=== PATIENT | female | born 1995 | race Hispanic/Latino ===

== ENCOUNTER 2019-05-22 19:11 | Emergency (ER) | payer BC, OTHER ==
--- NOTE | 2019-05-22 21:00 | EDPHYS ---
Physician Documentation [facility] Name: Carol Story Age: 23 yrs Sex: Female : 1995 Arrival Date: 05/22/2019 Time: 19:15 Bed 20 Private MD: ED Physician Fabrizio Arvizu HPI: 05/22 06:50 This 23 yrs old Female presents to ER via Ambulatory with complaints of tw4 Nausea, Rash. 06:50 The patient presents to the emergency department with nausea, that is mild. Onset: The tw4 symptoms/episode began/occurred today. Possible causes: unknown. The symptoms are aggravated by nothing. The symptoms are alleviated by nothing. Severity of symptoms: At their worst the symptoms were moderate in the emergency department the symptoms are unchanged. The patient has not experienced similar symptoms in the past. 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 - Social history:: Smoking status: Patient denies any tobacco usage or history of. ROS: 05/22 06:50 Constitutional: Negative for fever, chills, and weight loss, Eyes: Negative for injury, tw4 pain, redness, and discharge. Cardiovascular: Negative for chest pain, palpitations, and edema, Respiratory: Negative for shortness of breath, cough, wheezing, and pleuritic chest pain, MS/Extremity: Negative for injury and deformity, Neuro: Negative for headache, weakness, numbness, tingling, and seizure. Abdomen/GI: Positive for nausea, Negative for abdominal pain, nausea and vomiting, nausea, vomiting, and diarrhea, constipation, abdominal cramps, abdominal distension, anorexia, dysphagia, hematemesis. Skin: Positive for rash. Exam: 06:50 Constitutional: This is a well developed, well nourished patient who is awake, alert, tw4 and in no acute distress. Head/Face: Normocephalic, atraumatic. Chest/axilla: Normal chest wall appearance and motion. Nontender with no deformity. No lesions are appreciated. Cardiovascular: Regular rate and rhythm with a normal S1 and S2. No gallops, murmurs, or rubs. Normal PMI, no JVD. No pulse deficits. Respiratory: Lungs have equal breath sounds bilaterally, clear to auscultation and percussion. No rales, rhonchi or wheezes noted. No increased work of breathing, no retractions or nasal flaring. Abdomen/GI: Soft, non-tender, with normal bowel sounds. No distension or tympany. No guarding or rebound. No evidence of tenderness throughout. MS/ Extremity: Pulses equal, no cyanosis. Neurovascular intact. Full, normal range of motion. Neuro: Awake and alert, GCS 15, oriented to person, place, time, and situation. Cranial nerves II-XII grossly intact. Motor strength 5/5 in all extremities. Sensory grossly intact. Cerebellar exam normal. Normal gait. 06:50 Skin: urticaria. Vital Signs: 05/21 19:45 BP 135 / 85; Pulse 78; Resp 16 S; Temp 98.7(O); Pulse Ox 100% on R/A; Weight 51.71 kg bb (R); Height 4 ft. 11 in. (149.86 cm) (R); Pain 0/10; 21:21 BP 103 / 85; Pulse 76; Resp 16; Temp 98.5(O); Pulse Ox 100% ; Pain 0/10; ao 19:45 Body Mass Index 23.02 (51.71 kg, 149.86 cm) bb MDM: 20:27 Patient medically screened. tw4 05/22 06:50 Differential diagnosis: Nonspecific abd pain, gastritis. Data reviewed: vital signs, tw4 nurses notes. Counseling: I had a detailed discussion with the patient and/or guardian regarding: the historical points, exam findings, and any diagnostic results supporting the discharge/admit diagnosis. Administered Medications: 05/21 21:10 Drug: predniSONE 60 mg Route: PO; ao 21:19 Follow up: Response: No adverse reaction ao 21:10 Drug: Zofran (Ondansetron) 4 mg Route: PO; ao 21:19 Follow up: Response: No adverse reaction ao Disposition: 05/22/19 20:59 Discharged to Home. Impression: Nausea, Dermatitis, unspecified. - Condition is Stable. - Discharge Instructions: Nausea, Adult, Rash. - Prescriptions for Zofran 4 mg Oral Tablet - take 1 tablet by ORAL route every 12 hours As needed; 6 tablet. Medrol (Oliverio) 4 mg Oral Tablets, Dose Pack - take 1 tablet by ORAL route as directed - follow package instructions; 1 packet. - Medication Reconciliation Form, Thank You Letter, Antibiotic Education, Prescription Opioid Use form. - Follow up: Private Physician; When: Upon discharge from the Emergency Department; Reason: Recheck today's complaints, Continuance of care, Re-evaluation by your physician. - Problem is new. - Symptoms have improved. Signatures: Candis Ramírez RN RN bb Chris Trinidad RN RN ao Fabrizio Arvizu MD MD tw4 Corrections: (The following items were deleted from the chart) 21:21 20:59 05/22/2019 20:59 Discharged to Home. Impression: Nausea; Dermatitis, unspecified. ao Condition is Stable. Forms are Medication Reconciliation Form, Thank You Letter, Antibiotic Education, Prescription Opioid Use. Follow up: Private Physician; When: Upon discharge from the Emergency Department; Reason: Recheck today's complaints, Continuance of care, Re-evaluation by your physician. Problem is new. Symptoms have improved. tw4
--- NOTE | 2019-05-22 21:00 | ER ---
Nurse's Notes [facility] Name: Carol Story Age: 23 yrs Sex: Female : 1995 Arrival Date: 05/22/2019 Time: 19:15 Bed 20 Private MD: Diagnosis: Nausea;Dermatitis, unspecified Presentation: 05/21 19:45 Chief complaint: Patient states: she has a rash on her forearms, neck and chest she has bb taken Benadryl but it is still there and she is nauseous since the night before last. Coronavirus screen: The patient has NOT traveled to a country currently being monitored by the [facility] within the last 14 days. Proceed with normal triage procedures. Ebola Screen: No symptoms or risks identified at this time. Initial Sepsis Screen: Does the patient meet any 2 criteria? No. Patient's initial sepsis screen is negative. Does the patient have a suspected source of infection? No. Patient's initial sepsis screen is negative. Risk Assessment: Do you want to hurt yourself or someone else? Patient reports no desire to harm self or others. Onset of symptoms was May 2019. 19:45 Method Of Arrival: Ambulatory bb 19:45 Acuity: CECY 4 bb Triage Assessment: 19:48 General: Appears in no apparent distress. well groomed, Behavior is calm, cooperative. bb Pain: Denies pain. Neuro: Level of Consciousness is awake, alert, obeys commands, Oriented to person, place, time, situation. Cardiovascular: No deficits noted. Respiratory: Respiratory effort is even, unlabored, Respiratory pattern is regular. GI: Reports nausea. Musculoskeletal: Circulation, motion, and sensation intact. 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 - Social history:: Smoking status: Patient denies any tobacco usage or history of. Screenin:35 Abuse screen: Denies threats or abuse. Denies injuries from another. Nutritional ao screening: No deficits noted. Tuberculosis screening: No symptoms or risk factors identified. Fall Risk None identified. Assessment: 20:30 General: Appears in no apparent distress. comfortable, well groomed, well developed, ao well nourished, Behavior is calm, cooperative, appropriate for age. Pain: Denies pain. Pain currently is 0 out of 10 on a pain scale. Neuro: Level of Consciousness is awake, alert, obeys commands, Oriented to person, place, time, situation, Appropriate for age Moves all extremities. Full function Speech is normal. Cardiovascular: Capillary refill < 3 seconds Patient's skin is warm and dry. Respiratory: Airway is patent Respiratory effort is even, unlabored, Respiratory pattern is regular, symmetrical. GI: Abdomen is flat, non-distended. GI: Reports nausea. : No signs and/or symptoms were reported regarding the genitourinary system. EENT: No signs and/or symptoms were reported regarding the EENT system. Derm: No signs and/or symptoms reported regarding the dermatologic system. Skin is pink, warm \T\ dry. normal, Rash noted that is Reported on neck and upper trunk. Musculoskeletal: Circulation, motion, and sensation intact. Range of motion: intact in all extremities. 21:19 Reassessment: DC instructions given to patient. Pt agree with POC and to follow up with ao PCP. Vital Signs: 19:45 BP 135 / 85; Pulse 78; Resp 16 S; Temp 98.7(O); Pulse Ox 100% on R/A; Weight 51.71 kg bb (R); Height 4 ft. 11 in. (149.86 cm) (R); Pain 0/10; 21:21 BP 103 / 85; Pulse 76; Resp 16; Temp 98.5(O); Pulse Ox 100% ; Pain 0/10; ao 19:45 Body Mass Index 23.02 (51.71 kg, 149.86 cm) ED Course: 19:15 Patient arrived in ED. es 19:47 Triage completed. bb 19:48 Arm band placed on Patient placed in waiting room, Patient notified of wait time. bb 20:00 Fabrizio Arvizu MD is Attending Physician. tw4 20:30 Chris Trinidad, RASHAAD is Primary Nurse. ao 20:35 Patient has correct armband on for positive identification. Fall risk band placed. ao Placed in gown. Bed in low position. Pulse ox on. NIBP on. 21:20 No provider procedures requiring assistance completed. Patient did not have IV access ao during this emergency room visit. Administered Medications: 21:10 Drug: predniSONE 60 mg Route: PO; ao 21:19 Follow up: Response: No adverse reaction ao 21:10 Drug: Zofran (Ondansetron) 4 mg Route: PO; ao 21:19 Follow up: Response: No adverse reaction ao Outcome: 20:59 Discharge ordered by . tw4 21:20 Discharged to home ambulatory. ao 21:20 Condition: stable 21:20 Discharge instructions given to patient, Instructed on discharge instructions, follow up and referral plans. Demonstrated understanding of instructions, follow-up care, medications, Prescriptions given X 2. 21:21 Patient left the ED. ao Signatures: Batsheva Thomas Brenda RN RN Chris Eller RN RN Fabrizio Brandt MD MD tw4
[2019-05-22] MEDS ORDERED: ONDANSETRON 4 MG (ODT) TAB ONE (21:09)
[2019-05-22] MEDS ORDERED: predniSONE 20 MG TAB ONE (21:09)
[2019-05-22 21:36] VITALS: BP 103/85; TEMP 98.5; O2SAT 100
== END 2019-05-22 21:21 | disposition home or self-care (01) ==
LOC: ER 19:11
DX: L30.9 Dermatitis, unspecified (principal); R11.0 Nausea
CPT/HCPCS: 99283; J7512